=== PATIENT | female | born 1950 | race Caucasian/White ===

== ENCOUNTER 2021-02-04 01:34 | Inpatient (IN) | payer BC ==
[~2021-02-04] VITALS: Ht 170.2 cm; Wt 56.7 kg
--- NOTE | 2021-02-04 01:46 | NUR ---
BIBRA 878 FROM HOME C/O GEN ABD PAIN SINCE 2PM. PT A/OX4. CONNECTED PT TO MONITOR AND POX
[2021-02-04] MEDS ORDERED: ONDANSETRON HCL/PF 4 MG/2 ML VIAL ONE ×3 (01:58→12:19)
[2021-02-04] MEDS ORDERED: MORPHINE SULFATE INJ 4 MG/ML DISP.SYRIN ONE ×2 (01:59→05:27)
[2021-02-04] MEDS ORDERED: MORPHINE SULFATE INJ 2 MG/ML DISP.SYRIN IV ONE ×2 (02:00→05:30)
[2021-02-04] MEDS ORDERED: ONDANSETRON HCL/PF 4 MG/2 ML VIAL IVP ONE (02:00)
[2021-02-04] MEDS ORDERED: IV NS 0.9% 1,000 ML BAG IV ONE (02:00)
--- NOTE | 2021-02-04 02:12 | NUR ---
INITATED IV LAC #20G S/L; BLOODWORK COLLECTED AND GIVEN TO LAB MEDS ADMIN ORDERED
--- NOTE | 2021-02-04 02:16 | NUR ---
PT TAKEN TO CT VIA [facility]EL[facility]
--- NOTE | 2021-02-04 02:40 | NUR ---
PT RETURNED TO ER ROOM 04
[2021-02-04 02:47] LABS: BASOPHILS % (AUTO) 0.2 % (0.0-2.0); EOSINOPHILS % (AUTO) 0.7 % (0.0-6.0); HEMATOCRIT 41 % (33-45); HEMOGLOBIN 13.4 g/dL (11.5-14.8); LYMPHOCYTES % (AUTO) 8.6 % (20.0-44.0); MEAN CORPUSCULAR HGB CONC 33 g/dl (31.0-36.0); MEAN CORPUSCULAR VOLUME 90 fL (82-100); MONOCYTES # (AUTO) 0.5 K/uL (0.1-1.30); MONOCYTES % (AUTO) 4.5 % (2.0-12.0); NEUTROPHILS # (AUTO) 10.5 K/uL (1.8-8.9); PLATELET COUNT (AUTO) 304 K/uL (150-450); RED BLOOD CELL COUNT(AUTO) 4.55 MIL/uL (4.0-5.2); WHITE BLOOD COUNT (AUTO) 12.1 K/uL (4.3-11.0)
[2021-02-04 02:55] LABS: CARBON DIOXIDE 28 mmol/L (21-32); CHLORIDE 97 mmol/L (98-107); CREATININE 0.8 mg/dL (0.6-1.3); GLUCOSE 176 mg/dL (74-106); POTASSIUM 4.1 mmol/L (3.5-5.1); SODIUM SERUM 135 mmol/L (136-145); UREA NITROGEN, BLOOD 19 mg/dL (7-18)
[2021-02-04 03:02] LABS: ALANINE AMINOTRANSFERASE 39 U/L (12-78); ALBUMIN 4.5 g/dL (3.4-5.0); ALKALINE PHOSPHATASE 127 U/L (46-116); ASPARTATE AMINOTRANSFERASE 27 U/L (15-37); BILIRUBIN,DIRECT 0.2 mg/dL (0.0-0.2); BILIRUBIN,TOTAL 0.6 mg/dL (0.2-1.0); LIPASE 75 U/L (73-393); TOTAL PROTEIN, SERUM 7.9 g/dL (6.4-8.2)
--- NOTE | 2021-02-04 03:15 | NUR ---
URINE COLLECTED AND SENT TO LAB
[2021-02-04] MEDS ORDERED: LIDOCAINE VISCOUS 2% UD 15 ML UDC ONE (04:44)
[2021-02-04 04:45] LABS: BILIRUBIN,URINE NEGATIVE (NEGATIVE); COLOR,URINE YELLOW (YELLOW); LEUKOCYTE ESTERASE ,URINE TRACE (NEGATIVE); NITRITE, URINE NEGATIVE (NEGATIVE); PROTEIN,URINE NEGATIVE (NEGATIVE); UGLUCOSE NEGATIVE (NEGATIVE); UROBILINOGEN,URINE 0.2 EU/dL (0.2)
--- NOTE | 2021-02-04 05:03 | NUR ---
INSERTED NGT TO L NARE 18 FR; AUSCULTATION AND ASPIRATION PLACEMENT VERIFIED. AWAITING CXR PLACEMENT
--- NOTE | 2021-02-04 05:13 | NUR ---
SR. STRATEGIC SOURCING MANAGER AT BEDSIDE FOR NGT PLACEMENT
[2021-02-04] MEDS ORDERED: ONDANSETRON HCL/PF 4 MG/2 ML VIAL IV ONE (05:30)
--- NOTE | 2021-02-04 05:55 | NUR ---
PLACEMENT CONFIRMED VIA NGT. NGT CONNECTED TO LOW/MEDIUM INTERMITTANT SUCTION WITH BROWN OUTPUT. PT TOLERATING NGT WELL WITH NO N/V
[2021-02-04 06:51] LABS: RBC,URINE NONE SEEN /HPF (0-2); SQUAMOUS EPITHELIAL CELL,UR Moderate /HPF (None Seen); WBC,URINE 0-2 /HPF (0-3)
[2021-02-04 06:52] LABS: BACTERIA,URINE Moderate /HPF (None Seen)
--- NOTE | 2021-02-04 08:15 | NUR ---
report given to nurse Diaz
[2021-02-04] MEDS ORDERED: AMPH15TA3 PO (08:40)
[2021-02-04] MEDS ORDERED: AMLO-212 PO (08:40)
[2021-02-04] MEDS ORDERED: ASPI-1169 PO (08:40)
[2021-02-04] MEDS ORDERED: LEVO75TA7 PO (08:40)
[2021-02-04] MEDS ORDERED: ROSU10TA29 PO (08:40)
[2021-02-04] MEDS ORDERED: NORT10CA PO (08:40)
[2021-02-04 09:00] VITALS: BP 156/74
--- NOTE | 2021-02-04 09:00 | NUR ---
MS SKI PATROL NOTES RECEIVED PATIENT FROM ER VIA [facility] ENDORSED BY NURSE VEE. ON ROOM AIR TOLERATING WELL. NO SOB NOTED. NOT IN DISTRESS. WITH COMPLAINTS OF PAIN IN THE ABDOMINAL AREA AT 7/10. COMFORT MEASURES PROVIDED. WITH IV ACCESS AT LEFT AC G20 WITH IVF D5NS AT 75ML/HR. SKIN ASSESSMENT DONE. ON NPO. MADE COMFORTABLE ON BED. SAFETY MEASURES IN PLACE. CALL LIGHT WITHIN REACH. BED ON LOWEST AND LOCKED POSITION, SIDE RAILS UP X2. WILL ENDORSE TO NEXT SHIFT FOR MIKE.
[2021-02-04] MEDS ORDERED: MORPHINE SULFATE INJ 2 MG/ML DISP.SYRIN ONE (09:59)
[2021-02-04] MEDS: MORPHINE SULFATE INJ 2 MG/ML DISP.SYRIN IV PRN ×2 (10:00→14:25)
[2021-02-04] MEDS ORDERED: ONDANSETRON HCL/PF 4 MG/2 ML VIAL IV PRN (12:30)
[2021-02-04] MEDS ORDERED: MAG HYDROX/AL HYDROX/SIMETH 30 ML UDC PO PRN (13:00)
[2021-02-04] MEDS ORDERED: ACETAMINOPHEN 325 MG TABLET PO PRN (13:00)
[2021-02-04] MEDS ORDERED: Z GUARD REMEDY 2 OZ OINT TP PRN (13:00)
[2021-02-04] MEDS ORDERED: ZOLPIDEM TARTRATE 5 MG TABLET PO PRN (13:00)
[2021-02-04] MEDS ORDERED: ONDANSETRON HCL/PF 4 MG/2 ML VIAL IVP PRN (13:00)
[2021-02-04] MEDS ORDERED: MAGNESIUM HYDROXIDE 30 ML UDC PO PRN (13:00)
[2021-02-04] MEDS: IV D5/0.45 NACL 1,000 ML IV PRN (14:25)
[2021-02-04 15:56] VITALS: BP 141/65
[2021-02-04] MEDS: HYDROMORPHONE 1 MG/1 ML DISP.SYRIN IV PRN ×2 (18:28→23:48)
--- NOTE | 2021-02-04 18:47 | NUR ---
MS RN CLOSING NOTES PATIENT RESTING ON BED AND A/O X4. ON ROOM AIR TOLERATING WELL. NO SOB NOTED. NOT IN DISTRESS. WITH COMPLAINTS OF PAIN IN THE ABDOMINAL AREA AT 8/10. COMFORT MEASURES PROVIDED. PAIN MEDS GIVEN. WITH IV ACCESS AT LEFT AC G20 WITH IVF D5NS AT 75ML/HR. SKIN ASSESSMENT DONE. ON NPO. MADE COMFORTABLE ON BED. SAFETY MEASURES IN PLACE. CALL LIGHT WITHIN REACH. BED ON LOWEST AND LOCKED POSITION, SIDE RAILS UP X2. WILL ENDORSE TO NEXT SHIFT FOR MIKE.
--- NOTE | 2021-02-04 19:05 | NUR ---
RN NOTES: PATIENT WAS AWAKE, SENDING TEXT MESSAGES, A/0X4, WITH IVF OF D5%1/2 NS AT 75 ML/HR ONGOING VIA INFUSION PUMP, SHE HAS NGT, ON NPO, PER RN ICE CHIPS ALLOWED, ALL HER MEDICATION VIA IV, CT SCAN OF ABD/PELVIS EVIDENCE OF SBO WITH TRANSITION POINT WITH LEFT HEMIPELVIS.ABLE TO AMBULATE WITH BRP, PENDING CONSULT WITH . -SHE VERBALIZED HER CONCERN DURING THE ENDORSEMENT SHE LOOKS ANXIOUS, BUT SHE SAID "I FEEL BETTER NOW",SHE WAS GIVEN PAIN MEDICATION BY MORNING SHIFT, ORIENTED TO UNIT AND STAFF, FALL AND ASPIRATION PRECAUTION OBSERVED, KEPT CALL LIGHT WITHIN EASY REACH. NO PAIN OR DISCOMFORT AT THIS TIME, NO SOB.
--- NOTE | 2021-02-04 19:30 | NUR ---
RN NOTES: WHILE GETTING ENDORSEMENT THE OUTGOING RN NOTIFIED SHE NEEDS TO BE STARTED WITH INTERMITTENT SUCTION.SET UP IN PLACED AND SUCTION STARTED.
[2021-02-04 20:00] VITALS: BP 147/67
--- NOTE | 2021-02-04 20:45 | NUR ---
RN NOTES: INTERMITTENT SUCTION VIA NGT ONGOING, ASSISTED TO THE BATHROOM ,WHILE SHE WALK BROWNISH DRAINAGE CAME OUT OF THE NGT TUBE AROUND 20CC, ASSISTED BACK TO HER BED, SUCTION ATTACHED AND IVF CONTINUE D5 1/2 NS AT 75 ML/HR.
--- NOTE | 2021-02-04 22:00 | NUR ---
RN NOTES: PATIENT IS ASLEEP, KEPT CALL LIGHT WITHIN EASY REACH, CHECK AT FREQUENT INTERVALS, SLEEPING COMFORTABLY, NOT IN PAIN, NO DRAINAGE NOTED IN THE SUCTION BOTTLE.
--- NOTE | 2021-02-05 00:12 | NUR ---
RN NOTES: -AWAKE AT 2345, SHE ASKED FOR HER PAIN MEDICATION, PAIN 9/10,DILAUDID GIVEN AT 2348, LEAKAGE OF LIGHT BROWN COLORED DRAINAGE ON HER BED, AROUND 100CC, ASSISTED TO THE BATHROOM, SHE PEE, CLEAN AND CHANGE, ASSISTED BACK TO BED, EXPRESS HER GRATITUDE, SHE IS MORE RELAX NOT ANXIOUS, KEPT ON CLOSE WATCH.SHE GET BACK TO SLEEP.KEPT CALL LIGHT WITHIN EASY REACH.
[2021-02-05] MEDS: IV D5/0.45 NACL 1,000 ML IV PRN ×2 (03:03→18:15)
--- NOTE | 2021-02-05 03:03 | NUR ---
RN NOTES: IVF CONSUMED, NEW BOTTLE OF D5 1/2 NS AT 75 ML/HR STARTED.
[2021-02-05] MEDS: HYDROMORPHONE 1 MG/1 ML DISP.SYRIN IV PRN ×4 (04:54→21:03)
--- NOTE | 2021-02-05 04:54 | NUR ---
RN NOTES: -ASLEEP AT SHORT INTERVALS, AWAKE ASKING FOR HER DILAUDID, PAIN 10/10, SHE VERBALIZE IM IN PAIN AGAIN I WANT MY SHOT, GIVEN PER PATIENT REQUEST. -NON PHARMACOLOGIC INTERVENTION RENDERED, WARM BLANKET PROVIDED.
[2021-02-05 06:14] LABS: BASOPHILS % (AUTO) 0.1 % (0.0-2.0); EOSINOPHILS % (AUTO) 0.4 % (0.0-6.0); HEMATOCRIT 39 % (33-45); HEMOGLOBIN 12.9 g/dL (11.5-14.8); LYMPHOCYTES # (AUTO) 0.8 K/uL (0.8-4.8); LYMPHOCYTES % (AUTO) 7.9 % (20.0-44.0); MEAN CORPUSCULAR HGB CONC 33 g/dl (31.0-36.0); MEAN CORPUSCULAR VOLUME 91 fL (82-100); MONOCYTES # (AUTO) 0.9 K/uL (0.1-1.30); MONOCYTES % (AUTO) 9.2 % (2.0-12.0); NEUTROPHILS # (AUTO) 7.9 K/uL (1.8-8.9); NEUTROPHILS % (AUTO) 82.4 % (43.0-81.0); PLATELET COUNT (AUTO) 293 K/uL (150-450); WHITE BLOOD COUNT (AUTO) 9.6 K/uL (4.3-11.0)
--- NOTE | 2021-02-05 06:32 | NUR ---
RN NOTES: AWAKE, BLOOD TEST DONE IN THE MORNING, SHE IS BUSY IN HER LAPTOP, NOTIFY INCOMING SHIFT TO F/U CONSULT WITH , NO DRAINAGE IN HER SUCTION BOTTLE, TOTAL DRAINAGE AROUND 120 CC, SHE PEE 5X IN PARACHUTE RIGGER, REMAIN NPO, ABDOMEN IS SOFT, KEPT ON CLOSE WATCH, NEEDS ATTENDED, ENDORSED FOR CONTINUITY OF CARE.
[2021-02-05 07:19] LABS: CALCIUM, SERUM 8.7 mg/dL (8.5-10.1); CREATININE 0.7 mg/dL (0.6-1.3); MAGNESIUM 2.2 mg/dL (1.8-2.4); PHOSPHORUS 3.8 mg/dL (2.5-4.9); POTASSIUM 3.1 mmol/L (3.5-5.1)
--- NOTE | 2021-02-05 07:30 | NUR ---
MS RN OPENING NOTES RECEIVED PATIENT AWAKE ON BED AND A/O X4. ON ROOM AIR TOLERATING WELL. NO SOB NOTED. NOT IN DISTRESS. WITH NO COMPLAINTS OF PAIN AT THIS TIME. WITH NGT AT LEFT NARES ON LOW INTERMITTENT SUCTION. WITH IV ACCESS AT LEFT AC G20 WITH D5 1/2 NS AT 75ML/HR INFUSING WELL. SAFETY MEASURES IN PLACE. CALL LIGHT WITHIN REACH. BED ON LOWEST AND LOCKED POSITION, SIDE RAILS UP X2. WILL CONTINUE TO MONITOR.
[2021-02-05 08:00] VITALS: BP 162/76
[2021-02-05] MEDS: PANTOPRAZOLE 40 MG VIAL IV SCH (08:53)
--- NOTE | 2021-02-05 08:53 | NUR ---
RN NOTE PATIENT WITH COMPLAINT OF ABDOMINAL PAIN AT THE SCALE OF 7/10 AND ASKED FOR PAIN MEDICATION. DILAUDID 1MG IV GIVEN PRN FOR PAIN. COMFORT MEASURES PROVIDED. WILL MONITOR.
[2021-02-05] MEDS: POTASSIUM CL. PREMIX PERIPHER. 50 ML IV SCH ×4 (09:11→18:39)
--- NOTE | 2021-02-05 10:40 | NUR ---
MS RN NOTES SEEN BY DR. WILL AND HE EXPLAINED TO THE PATIENT WHAT SMALL BOWEL OBSTRUCTION IS AND HOW NGT ON LOW INTERMITTENT SUCTION WORKS FOR THE PATIENT.
[2021-02-05] MEDS: LORAZEPAM INJ 2 MG/ML VIAL IV PRN ×2 (11:44→17:46)
--- NOTE | 2021-02-05 14:08 | NUR ---
RN NOTES PATIENT WITH COMPLAINT OF PAIN IN THE ABDOMEN AT THE SCALE OF 8/10. DILAUDID 1MG IV GIVEN FOR PAIN.
[2021-02-05 16:00] VITALS: BP 139/73
--- NOTE | 2021-02-05 17:46 | NUR ---
MS RN NOTES PATIENT IS ANXIOUS AND ASKED FOR ATIVAN FOR ANXIETY. ATIVAN 1MG IV GIVEN PRN FOR ANXIETY. WILL MONITOR.
--- NOTE | 2021-02-05 18:25 | NUR ---
MS RN CLOSING NOTES PATIENT RESTING ON BED AND A/O X4. ON ROOM AIR TOLERATING WELL. NO SOB NOTED. NOT IN DISTRESS. WITH NO COMPLAINTS OF PAIN AT THIS TIME. WITH NGT AT LEFT NARES ON LOW INTERMITTENT SUCTION WITH AN OUTPUT OF 200CC. WITH IV ACCESS AT LEFT AC G20 WITH D5 1/2 NS AT 75ML/HR INFUSING WELL. SAFETY MEASURES IN PLACE. CALL LIGHT WITHIN REACH. BED ON LOWEST AND LOCKED POSITION, SIDE RAILS UP X2. WILL ENDORSE TO NEXT SHIFT FOR MIKE.
--- NOTE | 2021-02-05 19:33 | NUR ---
MS RN OPENING NOTES RECEIVED PT IN BED, ASLEEP, AWAKENS TO VERBAL STIMULI. AOx4. ABLE TO MAKE NEEDS KNOWN. ON RA AND TOLERATING WELL. NO SOB NOTED. NO S/SX OF RESPIRATORY DISTRESS NOTED. IV ACCESS IN R WRIST #20 RUNNING D5 1/2NS @75 ML/HR. NG TUBE IN LEFT NARE ON LOW INTERMITTENT SUCTION. SAFETY PRECAUTIONS IN PLACE: BED IN LOWEST, LOCKED POSITION, SIDERAILS UPx2, AND BRAKES ON. TABLE AND CALL LIGHT WITHIN REACH. WILL CONTINUE TO MONITOR.
[2021-02-05 20:11] VITALS: BP 181/86
--- NOTE | 2021-02-05 21:04 | NUR ---
ADMINISTERED DILAUDID FOR PAIN PER MD ORDER. VS WNL. WILL CONTINUE TO MONITOR.
[2021-02-06] MEDS: HYDROMORPHONE 1 MG/1 ML DISP.SYRIN IV PRN ×3 (01:33→19:45)
--- NOTE | 2021-02-06 01:33 | NUR ---
ADMINISTERED DILAUDID FOR PAIN PER MD ORDER. VS WNL. WILL CONTINUE TO MONITOR.
[2021-02-06] MEDS: LORAZEPAM INJ 2 MG/ML VIAL IV PRN ×3 (03:11→21:11)
--- NOTE | 2021-02-06 03:13 | NUR ---
ADMINISTERED ATIVAN PER MD ORDER FOR ANXIETY. VS WNL. WILL CONTINUE TO MONITOR.
--- NOTE | 2021-02-06 06:15 | NUR ---
NG TUBE WAS REMOVED. INSERTED NEW NG TUBE. AUSCULTATED FOR PLACEMENT. CHEST XR TO SEE PLACEMENT ORDERED.
[2021-02-06] MEDS: IV D5/0.45 NACL 1,000 ML IV PRN ×2 (06:29→23:59)
[2021-02-06 06:37] LABS: BASOPHILS % (AUTO) 0.1 % (0.0-2.0); EOSINOPHILS % (AUTO) 0.8 % (0.0-6.0); HEMATOCRIT 36 % (33-45); HEMOGLOBIN 11.9 g/dL (11.5-14.8); LYMPHOCYTES # (AUTO) 0.8 K/uL (0.8-4.8); LYMPHOCYTES % (AUTO) 11.9 % (20.0-44.0); MEAN CORPUSCULAR HGB CONC 34 g/dl (31.0-36.0); MEAN CORPUSCULAR VOLUME 91 fL (82-100); MONOCYTES # (AUTO) 1.1 K/uL (0.1-1.30); MONOCYTES % (AUTO) 15.4 % (2.0-12.0); NEUTROPHILS % (AUTO) 71.8 % (43.0-81.0); PLATELET COUNT (AUTO) 239 K/uL (150-450); RED BLOOD CELL COUNT(AUTO) 3.92 MIL/uL (4.0-5.2); WHITE BLOOD COUNT (AUTO) 6.9 K/uL (4.3-11.0)
[2021-02-06 06:40] LABS: CALCIUM, SERUM 8.3 mg/dL (8.5-10.1); CREATININE 0.6 mg/dL (0.6-1.3); POTASSIUM 3.1 mmol/L (3.5-5.1)
--- NOTE | 2021-02-06 06:56 | NUR ---
MS RN CLOSING NOTES PT IN BED, ASLEEP, AWAKENS TO VERBAL STIMULI. AOx4. ABLE TO MAKE NEEDS KNOWN. ON RA AND TOLERATING WELL. NO SOB NOTED. NO S/SX OF RESPIRATORY DISTRESS NOTED. IV ACCESS IN R WRIST #20 RUNNING D5 1/2NS @75 ML/HR. NG TUBE IN RIGHT NARE WITH NO SUCTION. ALL NEEDS MET. TREATED PAIN THROUGHOUT SHIFT. PT KEPT CLEAN AND DRY. SAFETY PRECAUTIONS IN PLACE: BED IN LOWEST, LOCKED POSITION, SIDERAILS UPx2, AND BRAKES ON. TABLE AND CALL LIGHT WITHIN REACH. WILL ENDORSE TO ONCOMING SHIFT.
--- NOTE | 2021-02-06 07:44 | NUR ---
MS RN OPENING NOTES RECEIVED PATIENT IN BED, AWAKE, A/O X4. PATIENT ON ROOM AIR; BREATHING EVEN AND UNLABORED AT THIS TIME; NO SOB PRESENT. NO COMPLAINS OF PAIN. NG TUBE TO THE RIGHT NARIS PRESENT AND INTACT WAITING CHEST X-RAY FOR PLACEMENT CHECK. R WRIST IV ACCESS G 3 20 RUNNING D5 1/2 NS @ 75 MLS/HR. SAFETY PRECAUTIONS IN PLACE; BED IN LOW POSITION AND LOCKED, RAILS UP X2, CALL LIGHT WITHIN REACH. WILL CONTINUE TO MONITOR PATIENT.
[2021-02-06 08:00] VITALS: BP 153/84
[2021-02-06] MEDS: PANTOPRAZOLE 40 MG VIAL IV SCH (08:23)
[2021-02-06] MEDS ORDERED: DIATR MEGLU/DIATRIZOATE SODIUM 120 ML BOTTLE (GASTROGRAPHIN) ONE (09:09)
[2021-02-06] MEDS ORDERED: CLONIDINE HCL 0.2MG/24H PTWK 1 EA PATCH TD SCH (10:00)
[2021-02-06 10:22] LABS: BAND % (MANUAL) 4 % (0.0-5.0); EOSINOPHILS % (MANUAL) 2 % (0-4); LYMPHOCYTES % (MANUAL) 14 % (16-48); MONOCYTES % (MANUAL) 19 % (0-11.0); NEUTROPHILS % (MANUAL) 61 (42-76)
[2021-02-06] MEDS: POTASSIUM CL. PREMIX PERIPHER. 50 ML IV SCH ×4 (11:30→20:56)
[2021-02-06 16:00] VITALS: BP 141/91
--- NOTE | 2021-02-06 18:24 | NUR ---
MS RN NOTES PER PATIENT, SHE WOULD LIKE THESE TWO PEOPLE TO BE ADDED TO HER CONTACT LIST: BRANDY (SISTER) [phone] AND BRODY (FRIEND) [phone]
--- NOTE | 2021-02-06 18:42 | NUR ---
MS RN CLOSING NOTES PATIENT REMAINS IN BED, AWAKE, A/O X3, WEAK. PATIENT ON ROOM AIR; BREATHING EVEN AND UNLABORED AT THIS TIME; NO SOB PRESENT. PAIN TREATED WITH PRN PAIN MEDICATION PER MD ORDER. R WRIST IV ACCESS G # 20 RUNNING D5 1/2 NS @ 75 MLS/HR. ALL NEEDS ATTENDED DURING SHIFT. SAFETY PRECAUTIONS IN PLACE; BED IN LOW POSITION AND LOCKED, RAILS UP X2, CALL LIGHT WITHIN REACH. WILL ENDORSE TO TRAINING AND DEVELOPMENT SPECIALIST NURSE FOR MIKE.
--- NOTE | 2021-02-06 19:45 | NUR ---
ADMINISTERED DILAUDID FOR PAIN PER MD ORDER. VS WNL. WILL CONTINUE TO MONITOR.
--- NOTE | 2021-02-06 19:50 | NUR ---
MS RN OPENING NOTES RECEIVED PT IN BED, AWAKE. AOx3. ABLE TO MAKE NEEDS KNOWN. ON RA AND TOLERATING WELL. NO SOB NOTED. NO S/SX OF RESPIRATORY DISTRESS NOTED. IV ACCESS IN R WRIST #20 RUNNING D5 1/2NS @75 ML/HR. SAFETY PRECAUTIONS IN PLACE: BED IN LOWEST, LOCKED POSITION, SIDERAILS UPx2, AND BRAKES ON. TABLE AND CALL LIGHT WITHIN REACH. WILL CONTINUE TO MONITOR.
[2021-02-06 20:00] VITALS: BP 146/86
--- NOTE | 2021-02-06 21:14 | NUR ---
ADMINISTERED ATIVAN PER MD ORDER FOR ANXIETY. VS WNL. WILL CONTINUE TO MONITOR.
[2021-02-07 06:23] LABS: BASOPHILS % (AUTO) 0.2 % (0.0-2.0); EOSINOPHILS % (AUTO) 2.3 % (0.0-6.0); HEMATOCRIT 33 % (33-45); HEMOGLOBIN 11.2 g/dL (11.5-14.8); LYMPHOCYTES # (AUTO) 1.1 K/uL (0.8-4.8); LYMPHOCYTES % (AUTO) 14.3 % (20.0-44.0); MEAN CORPUSCULAR HGB CONC 34 g/dl (31.0-36.0); MEAN CORPUSCULAR VOLUME 91 fL (82-100); MONOCYTES # (AUTO) 1.2 K/uL (0.1-1.30); MONOCYTES % (AUTO) 15.3 % (2.0-12.0); NEUTROPHILS # (AUTO) 5.3 K/uL (1.8-8.9); NEUTROPHILS % (AUTO) 67.9 % (43.0-81.0); PLATELET COUNT (AUTO) 220 K/uL (150-450); RED BLOOD CELL COUNT(AUTO) 3.59 MIL/uL (4.0-5.2); WHITE BLOOD COUNT (AUTO) 7.9 K/uL (4.3-11.0)
--- NOTE | 2021-02-07 06:58 | NUR ---
MS RN CLOSING NOTES PT IN BED, AWAKE. AOx3. ABLE TO MAKE NEEDS KNOWN. ON RA AND TOLERATING WELL. NO SOB NOTED. NO S/SX OF RESPIRATORY DISTRESS NOTED. IV ACCESS IN R WRIST #20 RUNNING D5 1/2NS @75 ML/HR. ALL NEEDS MET. ADMINISTERED PAIN NEEDED. PT KEPT CLEAN AND DRY. SAFETY PRECAUTIONS IN PLACE: BED IN LOWEST, LOCKED POSITION, SIDERAILS UPx2, AND BRAKES ON. TABLE AND CALL LIGHT WITHIN REACH. WILL ENDORSE TO ONCOMING SHIFT FOR MIKE.
--- NOTE | 2021-02-07 07:30 | NUR ---
RECEIVED PT. IN AM ALERT AND ORIENTED X4.DENIES PAIN AND NAUSEA,IV INFUSING.VS STABLE.
[2021-02-07 07:36] LABS: CALCIUM, SERUM 8.4 mg/dL (8.5-10.1); CREATININE 0.7 mg/dL (0.6-1.3); MAGNESIUM 1.9 mg/dL (1.8-2.4); POTASSIUM 3.1 mmol/L (3.5-5.1)
[2021-02-07 08:00] VITALS: BP 134/74
[2021-02-07] MEDS: PANTOPRAZOLE 40 MG VIAL IV SCH (09:07)
[2021-02-07] MEDS: POTASSIUM CHLORIDE 20 MEQ TAB.PRT.SR PO SCH ×2 (10:22→11:23)
--- NOTE | 2021-02-07 11:30 | NUR ---
DR. CAVAZOS IN [place] ORDER GIVEN. REQUESTED PT. STAY FOR LUNCH TO DETERMINE ABILITY TO EAT.
--- NOTE | 2021-02-07 12:10 | NUR ---
PT. AND FRIEND REQUEST TO LEAVE.PAPERS SIGNED INCLUDING BELONGING SHEET.HEP LOCK OUT.AWARE OF MEDS TO TAKE.DENIES ABD. PAIN.GIVEN PAPERWORK.TAKEN TO LOBBY VIA W/C.ACCOMPANIED BY FRIEND AND EQUIPMENT SUPERINTENDENT.
[2021-02-07 14:01] LABS: EOSINOPHILS % (MANUAL) 3 % (0-4); LYMPHOCYTES % (MANUAL) 11 % (16-48); MONOCYTES % (MANUAL) 14 % (0-11.0); NEUTROPHILS % (MANUAL) 72 (42-76)
== END 2021-02-07 12:10 | disposition home or self-care (01) | DRG 388 ==
LOC: ER 01:38 → TRANSITION 07:29 → MED 08:09
PROVIDERS: ADMIT Student in an Organized Health Care Education/Training Program; ATTEND Internal Medicine
DX: K56.609 Unspecified intestinal obstruction, unspecified as to partial versus complete obstruction (principal); E43 Unspecified severe protein-calorie malnutrition; Z68.1 Body mass index [BMI] 19.9 or less, adult; R64 Cachexia; E86.0 Dehydration; I10 Essential (primary) hypertension; D72.829 Elevated white blood cell count, unspecified; Z20.822 Contact with and (suspected) exposure to COVID-19; M79.7 Fibromyalgia; F19.10 Other psychoactive substance abuse, uncomplicated; Z79.82 Long term (current) use of aspirin; Z88.0 Allergy status to penicillin; Z79.899 Other long term (current) drug therapy; Z87.891 Personal history of nicotine dependence; G62.9 Polyneuropathy, unspecified; Z87.39 Personal history of other diseases of the musculoskeletal system and connective tissue; R79.89 Other specified abnormal findings of blood chemistry; K56.7 Ileus, unspecified
CPT/HCPCS: 36415; 71045-TC; 74250-TC; 80048-TC; 80061-TC; 80076-TC; 81001; 83690-TC; 83735-TC; 84100-TC; 84484-TC; 85025-TC; 85730-TC; 87081-TC; 87086-TC; 93307-TC; C9113; C9803; G0378; J1170; J2060; J2270; J2405; J3480; J3490; J7050; Q9963